=== PATIENT | female | born 1995 | race Caucasian/White ===

== ENCOUNTER 2022-11-18 21:30 | Emergency (ER) | payer BC ==
[2022-11-18] MEDS ORDERED: Amoxicillin/Clavulanate K 875-125 MG Tab PO ONE (21:51)
[2022-11-18] MEDS ORDERED: Acetaminophen/oxyCODONE 325-5 MG Tab PO ONE (21:52)
== END 2022-11-18 22:30 | disposition home or self-care (01) ==
LOC: JD.ED 21:30
DX: K08.89 Other specified disorders of teeth and supporting structures (principal)
CPT/HCPCS: 99282; A9270; 99283